=== PATIENT | male | born 1935 | race Caucasian/White ===

== ENCOUNTER 2017-04-20 21:09 | Emergency (ER) | payer MEDICARE ==
[~2017-04-20] VITALS: Ht 182.9 cm; Wt 86.2 kg
[~2017-04-20 21:09] MED LIST: ACCUPRIL PO; ALBIPROI; ASPI81CH PO; CALGLU500 PO; CETI5 PO; Calcium 250+D1 EACH PO; DUTA.5 PO; FLUSAL2505 INH; GUAI600T33; HYDCHL25 PO; INHALER INH; LAVAP17G PO; LEVOFLOXACIN750 MG; Lasix20 MG PO; METO50 PO; NORT25 PO; OMEP20ER PO; OXAP600 PO; OXYACE5T PO; OXYC15ER PO; OXYC5 PO; POLY17UD PO; PRED10; PRED20; QUIN10 PO; SIMV10 PO; SIMV20 PO; TAMS.4ER PO; TRAM50 PO
[2017-04-20] MEDS ORDERED: PRED10 PO (22:14)
[2017-04-20] MEDS ORDERED: ZYTIGA250 MG PO (22:15)
[2017-04-20 22:51] LABS: BASOPHILS ABSOLUTE AUTO 0.04 K/mm3 (0.00-0.23); BASOPHILS PERCENT AUTO 0 % (0-2); EOSINOPHILS ABSOLUTE AUTO 0.01 K/mm3 (0.00-0.68); EOSINOPHILS PERCENT AUTO 0 % (0-6); Hematocrit 44.8 % (37.0-53.0); Hemoglobin 14.7 g/dL (13.5-17.5); IMMATURE GRAN ABSOLUTE AUTO 0.16 K/mm3 (0.00-0.10); IMMATURE GRAN PERCENT AUTO 1 % (0-1); LYMPHOCYTES PERCENT AUTO 3 % (21-46); MONOCYTES ABSOLUTE AUTO 1.65 K/mm3 (0.16-1.47); MONOCYTES PERCENT AUTO 7 % (4-13); Mean Corpuscular HGB Conc 32.8 g/dL (31.5-36.5); Mean Corpuscular Volume 91 fL (80-100); Mean Platelet Volume 11.2 fL (9.1-12.4); NEUTROPHILS ABSOLUTE AUTO 21.43 K/mm3 (1.96-9.15); NEUTROPHILS PERCENT AUTO 89 % (41-73); Platelet Count 148 K/mm3 (150-400); RDW Coefficient Variation 13.2 % (11.7-14.2); White Blood Cell Count 24.09 K/mm3 (4.00-11.30)
[2017-04-20 23:09] LABS: International Normalized Ratio 1.11; Prothrombin Time Results 11.6 Sec (9.7-11.5)
[2017-04-20 23:12] LABS: Alanine Aminotransfer (ALT/SGP 19 U/L (12-78); Albumin, Blood 3.5 g/dL (3.4-5.0); Alk Phos 92 U/L (50-136); Anion Gap 8 mmol/L (6-16); Aspartate Aminotrans (AST/SGOT 20 U/L (12-37); Bilirubin, Total 0.7 mg/dL (0.1-1.0); Blood Urea Nitrogen 24 mg/dL (8-24); CO2, Blood 28 mmol/L (21-32); Chloride, Blood 101 mmol/L (98-108); Globulin, Blood 3.4 g/dL (2.2-4.0); Glomerular Filtration Rate >60 (60-); Glucose, Blood 134 mg/dL (70-99); Potassium, Blood 3.6 mmol/L (3.5-5.5); Sodium, Blood 137 mmol/L (136-145); Total Protein, Blood 6.9 g/dL (6.4-8.2)
[2017-04-21] MEDS ORDERED: Cleocin HCl150 MG PO (00:42)
[2017-04-21] MEDS ORDERED: GABA100 PO (13:56)
[2017-04-22] MEDS ORDERED: GABA300 PO (15:55)
== END 2017-04-21 01:25 | disposition home or self-care (01) ==
LOC: ER 21:09
PROVIDERS: Emergency Medicine
DX: L03.115 Cellulitis of right lower limb (principal); J44.9 Chronic obstructive pulmonary disease, unspecified; N40.0 Benign prostatic hyperplasia without lower urinary tract symptoms; E78.00 Pure hypercholesterolemia, unspecified; I10 Essential (primary) hypertension; I25.10 Atherosclerotic heart disease of native coronary artery without angina pectoris; Z79.891 Long term (current) use of opiate analgesic; Z79.82 Long term (current) use of aspirin; Z79.2 Long term (current) use of antibiotics
CPT/HCPCS: 36415; 73590; 80053; 83605; 85025; 85610; 85730; 87040; 93971; 96365; 99284; J3370

== ENCOUNTER 2017-04-21 11:17 | Inpatient (IN) | payer MEDICARE ==
[~2017-04-21] VITALS: Ht 175.3 cm; Wt 86.3 kg
[~2017-04-21 11:17] MED LIST changes: +Cleocin HCl150 MG PO; +PRED10 PO; +ZYTIGA250 MG PO
[2017-04-21 12:47] LABS: Hematocrit 42.7 % (37.0-53.0); Mean Corpuscular HGB 30.2 pg (26.0-34.0); Mean Corpuscular HGB Conc 32.8 g/dL (31.5-36.5); Mean Corpuscular Volume 92 fL (80-100); Mean Platelet Volume 10.9 fL (9.1-12.4); Platelet Count 132 K/mm3 (150-400); RDW Coefficient Variation 13.4 % (11.7-14.2); RDW Standard Deviation 45.7 fL (35.1-46.3); Red Blood Cell Count 4.64 M/mm3 (4.30-5.90); White Blood Cell Count 16.47 K/mm3 (4.00-11.30)
[2017-04-21 13:05] LABS: BASOPHILS ABSOLUTE MAN 0.16 K/mm3 (0.00-0.23); BASOPHILS PERCENT MAN 1 % (0-2); EOSINOPHILS PERCENT MAN 0 % (0-6); LYMPHOCYTES ABSOLUTE MAN 0.49 K/mm3 (0.84-5.20); LYMPHOCYTES PERCENT MAN 3 % (21-46); MONOCYTES ABSOLUTE MAN 0.98 K/mm3 (0.16-1.47); MONOCYTES PERCENT MAN 6 % (4-13); NEUTROPHILS ABSOLUTE MAN 14.82 K/mm3 (1.96-9.15); SEG NEUTROPHILS PERCENT MAN 90 % (41-73); TOTAL CELLS COUNTED 100
[2017-04-21] MEDS ORDERED: GABA100 PO (13:56)
[2017-04-22 05:17] LABS: BASOPHILS ABSOLUTE AUTO 0.05 K/mm3 (0.00-0.23); BASOPHILS PERCENT AUTO 0 % (0-2); EOSINOPHILS ABSOLUTE AUTO 0.11 K/mm3 (0.00-0.68); EOSINOPHILS PERCENT AUTO 1 % (0-6); Hematocrit 41.2 % (37.0-53.0); Hemoglobin 13.6 g/dL (13.5-17.5); IMMATURE GRAN ABSOLUTE AUTO 0.05 K/mm3 (0.00-0.10); IMMATURE GRAN PERCENT AUTO 0 % (0-1); LYMPHOCYTES ABSOLUTE AUTO 1.33 K/mm3 (0.84-5.20); LYMPHOCYTES PERCENT AUTO 10 % (21-46); MONOCYTES ABSOLUTE AUTO 1.03 K/mm3 (0.16-1.47); MONOCYTES PERCENT AUTO 7 % (4-13); Mean Corpuscular HGB 30.4 pg (26.0-34.0); Mean Corpuscular Volume 92 fL (80-100); Mean Platelet Volume 11.3 fL (9.1-12.4); NEUTROPHILS ABSOLUTE AUTO 11.31 K/mm3 (1.96-9.15); NEUTROPHILS PERCENT AUTO 81 % (41-73); Platelet Count 126 K/mm3 (150-400); RDW Coefficient Variation 13.4 % (11.7-14.2); RDW Standard Deviation 45.7 fL (35.1-46.3); Red Blood Cell Count 4.48 M/mm3 (4.30-5.90); White Blood Cell Count 13.88 K/mm3 (4.00-11.30)
[2017-04-22 05:43] LABS: Albumin, Blood 2.9 g/dL (3.4-5.0); Albumin/Globulin Ratio 0.8 (0.8-1.8); Bilirubin, Total 1.3 mg/dL (0.1-1.0); Bun/Creatinine Ratio 22.2 (12.0-20.0); Calcium, Blood 8.5 mg/dL (8.5-10.1); Creatinine, Blood 1.26 mg/dL (0.60-1.20); Globulin, Blood 3.5 g/dL (2.2-4.0); Total Protein, Blood 6.4 g/dL (6.4-8.2)
[2017-04-22] MEDS ORDERED: GABA300 PO (15:55)
[2017-04-23 05:07] LABS: BASOPHILS ABSOLUTE AUTO 0.07 K/mm3 (0.00-0.23); BASOPHILS PERCENT AUTO 1 % (0-2); EOSINOPHILS ABSOLUTE AUTO 0.18 K/mm3 (0.00-0.68); EOSINOPHILS PERCENT AUTO 2 % (0-6); Hematocrit 39.6 % (37.0-53.0); Hemoglobin 13.2 g/dL (13.5-17.5); IMMATURE GRAN ABSOLUTE AUTO 0.05 K/mm3 (0.00-0.10); IMMATURE GRAN PERCENT AUTO 1 % (0-1); LYMPHOCYTES ABSOLUTE AUTO 1.03 K/mm3 (0.84-5.20); LYMPHOCYTES PERCENT AUTO 9 % (21-46); MONOCYTES ABSOLUTE AUTO 1.02 K/mm3 (0.16-1.47); MONOCYTES PERCENT AUTO 9 % (4-13); Mean Corpuscular HGB 30.3 pg (26.0-34.0); Mean Corpuscular HGB Conc 33.3 g/dL (31.5-36.5); Mean Corpuscular Volume 91 fL (80-100); Mean Platelet Volume 11.7 fL (9.1-12.4); NEUTROPHILS ABSOLUTE AUTO 8.66 K/mm3 (1.96-9.15); NEUTROPHILS PERCENT AUTO 79 % (41-73); Platelet Count 128 K/mm3 (150-400); RDW Coefficient Variation 13.3 % (11.7-14.2); RDW Standard Deviation 44.9 fL (35.1-46.3); Red Blood Cell Count 4.35 M/mm3 (4.30-5.90); White Blood Cell Count 11.01 K/mm3 (4.00-11.30)
[2017-04-23 05:25] LABS: Albumin, Blood 2.5 g/dL (3.4-5.0); Albumin/Globulin Ratio 0.7 (0.8-1.8); Bilirubin, Total 1.3 mg/dL (0.1-1.0); Bun/Creatinine Ratio 20.1 (12.0-20.0); Calcium, Blood 8.2 mg/dL (8.5-10.1); Creatinine, Blood 1.34 mg/dL (0.60-1.20); Globulin, Blood 3.4 g/dL (2.2-4.0); Potassium, Blood 3.4 mmol/L (3.5-5.5); Total Protein, Blood 5.9 g/dL (6.4-8.2)
[2017-04-25 04:59] LABS: BASOPHILS ABSOLUTE AUTO 0.05 K/mm3 (0.00-0.23); BASOPHILS PERCENT AUTO 1 % (0-2); EOSINOPHILS ABSOLUTE AUTO 0.29 K/mm3 (0.00-0.68); EOSINOPHILS PERCENT AUTO 3 % (0-6); Hemoglobin 13.7 g/dL (13.5-17.5); IMMATURE GRAN ABSOLUTE AUTO 0.04 K/mm3 (0.00-0.10); IMMATURE GRAN PERCENT AUTO 0 % (0-1); LYMPHOCYTES ABSOLUTE AUTO 0.76 K/mm3 (0.84-5.20); LYMPHOCYTES PERCENT AUTO 8 % (21-46); MONOCYTES ABSOLUTE AUTO 0.92 K/mm3 (0.16-1.47); MONOCYTES PERCENT AUTO 10 % (4-13); Mean Corpuscular HGB 30.6 pg (26.0-34.0); Mean Corpuscular HGB Conc 33.4 g/dL (31.5-36.5); Mean Corpuscular Volume 92 fL (80-100); NEUTROPHILS ABSOLUTE AUTO 7.65 K/mm3 (1.96-9.15); NEUTROPHILS PERCENT AUTO 79 % (41-73); Platelet Count 130 K/mm3 (150-400); RDW Coefficient Variation 13.1 % (11.7-14.2); RDW Standard Deviation 44.1 fL (35.1-46.3); Red Blood Cell Count 4.47 M/mm3 (4.30-5.90); White Blood Cell Count 9.71 K/mm3 (4.00-11.30)
[2017-04-25 05:15] LABS: Anion Gap 7 mmol/L (6-16); Blood Urea Nitrogen 16 mg/dL (8-24); Bun/Creatinine Ratio 19.9 (12.0-20.0); CO2, Blood 27 mmol/L (21-32); Calcium, Blood 8.8 mg/dL (8.5-10.1); Chloride, Blood 102 mmol/L (98-108); Glomerular Filtration Rate >60 (60-); Glucose, Blood 100 mg/dL (70-99); Potassium, Blood 4.2 mmol/L (3.5-5.5); Sodium, Blood 136 mmol/L (136-145)
[2017-04-25] MEDS ORDERED: CEPH500 (12:29)
== END 2017-04-25 13:52 | disposition home or self-care (01) | DRG 872 ==
LOC: ER 11:17 → MEDS 12:46 → ENPENDDIS 04-25 11:36 → MEDS 04-25 13:52
PROVIDERS: Internal Medicine
DX: A41.9 Sepsis, unspecified organism (principal); N17.9 Acute kidney failure, unspecified; I95.9 Hypotension, unspecified; I13.0 Hypertensive heart and chronic kidney disease with heart failure and stage 1 through stage 4 chronic kidney disease, or unspecified chronic kidney disease; J44.1 Chronic obstructive pulmonary disease with (acute) exacerbation; I50.22 Chronic systolic (congestive) heart failure; L03.115 Cellulitis of right lower limb; I25.5 Ischemic cardiomyopathy; N18.9 Chronic kidney disease, unspecified; I12.9 Hypertensive chronic kidney disease with stage 1 through stage 4 chronic kidney disease, or unspecified chronic kidney disease; E78.5 Hyperlipidemia, unspecified; E87.6 Hypokalemia; C61 Malignant neoplasm of prostate; I25.10 Atherosclerotic heart disease of native coronary artery without angina pectoris; D33.2 Benign neoplasm of brain, unspecified; Z92.21 Personal history of antineoplastic chemotherapy; Z95.5 Presence of coronary angioplasty implant and graft; Z88.5 Allergy status to narcotic agent
CPT/HCPCS: 36415; 70450; 80048; 80053; 82947; 83880; 85007; 85025; 85027; 94640; 94760; 96374; 97161; 99285; G8978; G8979; J0690; J1650; J2405; J3010; J7030

== ENCOUNTER → 2017-07-18 | Outpatient (CLI) | payer MEDICARE ==
[~2017-07-18] MED LIST changes: +CEPH500; +GABA100 PO; +GABA300 PO
[2017-07-18 17:04] LABS: BASOPHILS ABSOLUTE AUTO 0.06 K/mm3 (0.00-0.23); BASOPHILS PERCENT AUTO 1 % (0-2); EOSINOPHILS ABSOLUTE AUTO 0.13 K/mm3 (0.00-0.68); EOSINOPHILS PERCENT AUTO 2 % (0-6); Hemoglobin 14.1 g/dL (13.5-17.5); IMMATURE GRAN ABSOLUTE AUTO 0.03 K/mm3 (0.00-0.10); IMMATURE GRAN PERCENT AUTO 0 % (0-1); LYMPHOCYTES ABSOLUTE AUTO 1.02 K/mm3 (0.84-5.20); LYMPHOCYTES PERCENT AUTO 12 % (21-46); MONOCYTES ABSOLUTE AUTO 0.79 K/mm3 (0.16-1.47); MONOCYTES PERCENT AUTO 9 % (4-13); Mean Corpuscular HGB 30.7 pg (26.0-34.0); Mean Corpuscular HGB Conc 33.6 g/dL (31.5-36.5); Mean Corpuscular Volume 91 fL (80-100); Mean Platelet Volume 10.5 fL (9.1-12.4); NEUTROPHILS PERCENT AUTO 76 % (41-73); Platelet Count 176 K/mm3 (150-400); RDW Coefficient Variation 12.8 % (11.7-14.2); RDW Standard Deviation 42.9 fL (35.1-46.3); White Blood Cell Count 8.43 K/mm3 (4.00-11.30)
== END ==
LOC: LAB SHORT 16:59 → LAB EV 16:59
PROVIDERS: Physician Assistant Surgical
DX: R22.41 Localized swelling, mass and lump, right lower limb (principal)
CPT/HCPCS: 85025

== ENCOUNTER 2018-02-27 19:27 | Inpatient (IN) | payer MEDICARE ==
[~2018-02-27] VITALS: Ht 180.3 cm; Wt 83.4 kg
[~2018-02-27 19:27] MED LIST changes: -ABAT250V; -ELIQUIS5 MG PO; -Furosemide20 MG PO; -GAVILAX17 GM PO; -OXYC10ER PO; -Oxycodone HCl20 M1 PO; -POTCHL20ER PO; -PRED5 PO
[2018-02-27] MEDS ORDERED: Oxycodone HCl20 M1 PO (20:48)
[2018-02-27] MEDS ORDERED: HYDCHL25 PO (20:48)
[2018-02-27] MEDS ORDERED: ABAT250V (20:48)
[2018-02-27] MEDS ORDERED: POTCHL20ER PO (20:48)
[2018-02-27 21:01] LABS: International Normalized Ratio 1.26; Prothrombin Time Results 12.8 Sec (9.7-11.5)
[2018-02-27 21:17] LABS: BASOPHILS ABSOLUTE AUTO 0.03 K/mm3 (0.00-0.23); BASOPHILS PERCENT AUTO 1 % (0-2); EOSINOPHILS ABSOLUTE AUTO 0.12 K/mm3 (0.00-0.68); EOSINOPHILS PERCENT AUTO 2 % (0-6); Hematocrit 35.1 % (37.0-53.0); Hemoglobin 11.7 g/dL (13.5-17.5); IMMATURE GRAN ABSOLUTE AUTO 0.03 K/mm3 (0.00-0.10); IMMATURE GRAN PERCENT AUTO 1 % (0-1); LYMPHOCYTES ABSOLUTE AUTO 0.67 K/mm3 (0.84-5.20); LYMPHOCYTES PERCENT AUTO 11 % (21-46); MONOCYTES ABSOLUTE AUTO 0.58 K/mm3 (0.16-1.47); MONOCYTES PERCENT AUTO 9 % (4-13); Mean Corpuscular HGB 31.1 pg (26.0-34.0); Mean Corpuscular HGB Conc 33.3 g/dL (31.5-36.5); Mean Corpuscular Volume 93 fL (80-100); Mean Platelet Volume 11.5 fL (9.1-12.4); NEUTROPHILS ABSOLUTE AUTO 4.85 K/mm3 (1.96-9.15); NEUTROPHILS PERCENT AUTO 77 % (41-73); Platelet Count 82 K/mm3 (150-400); RDW Coefficient Variation 13.1 % (11.7-14.2); RDW Standard Deviation 44.8 fL (35.1-46.3); Red Blood Cell Count 3.76 M/mm3 (4.30-5.90); White Blood Cell Count 6.28 K/mm3 (4.00-11.30)
[2018-02-27 21:32] LABS: Albumin, Blood 3.1 g/dL (3.4-5.0); Bilirubin, Total 0.8 mg/dL (0.1-1.0); Calcium, Blood 8.1 mg/dL (8.5-10.1); Creatinine, Blood 1.61 mg/dL (0.60-1.20); Globulin, Blood 3.2 g/dL (2.2-4.0); Potassium, Blood 3.4 mmol/L (3.5-5.5); Total Protein, Blood 6.3 g/dL (6.4-8.2)
[2018-02-27 21:54] LABS: Uric Acid, Blood 6.1 mg/dL (3.5-7.2)
[2018-02-27 23:58] LABS: Source, Urine Clean Catch
[2018-02-28 00:04] LABS: Bilirubin, Urine Neg (Neg); Blood, Urine 2+ (Neg); Glucose Qualitative, Urine Neg (Neg); Ketones, Urine Neg (Neg); Leukocyte Esterase, Urine Neg (Neg); Nitrite, Urine Neg (Neg); Protein, Urine 2+ (Neg); Urobilinogen, Urine NORM (Normal)
[2018-02-28 00:07] LABS: Appearance, Urine Clear (Clear); Color, Urine Yellow (P-Yellow)
[2018-02-28 00:18] LABS: Bacteria Rare /hpf; Squamous Epithelial Cells Few /hpf (Few); White Blood Cells, Urine 0-2 /hpf (0-5)
[2018-02-28 05:37] LABS: International Normalized Ratio 1.23; Prothrombin Time Results 12.5 Sec (9.7-11.5)
[2018-02-28 05:51] LABS: Albumin, Blood 3.2 g/dL (3.4-5.0); Albumin/Globulin Ratio 1.1 (0.8-1.8); Bilirubin, Total 1.3 mg/dL (0.1-1.0); Bun/Creatinine Ratio 11.8 (12.0-20.0); Calcium, Blood 8.5 mg/dL (8.5-10.1); Creatinine, Blood 1.86 mg/dL (0.60-1.20); Potassium, Blood 3.4 mmol/L (3.5-5.5); Total Protein, Blood 6.2 g/dL (6.4-8.2)
[2018-02-28] MEDS ORDERED: PRED5 PO (13:14)
[2018-02-28] MEDS ORDERED: Furosemide20 MG PO (13:15)
[2018-03-01 05:31] LABS: BASOPHILS ABSOLUTE AUTO 0.04 K/mm3 (0.00-0.23); BASOPHILS PERCENT AUTO 1 % (0-2); EOSINOPHILS ABSOLUTE AUTO 0.21 K/mm3 (0.00-0.68); EOSINOPHILS PERCENT AUTO 4 % (0-6); Hematocrit 34.2 % (37.0-53.0); Hemoglobin 11.3 g/dL (13.5-17.5); IMMATURE GRAN ABSOLUTE AUTO 0.02 K/mm3 (0.00-0.10); IMMATURE GRAN PERCENT AUTO 0 % (0-1); LYMPHOCYTES ABSOLUTE AUTO 0.65 K/mm3 (0.84-5.20); LYMPHOCYTES PERCENT AUTO 13 % (21-46); MONOCYTES ABSOLUTE AUTO 0.46 K/mm3 (0.16-1.47); MONOCYTES PERCENT AUTO 9 % (4-13); Mean Corpuscular HGB 31.1 pg (26.0-34.0); Mean Corpuscular Volume 94 fL (80-100); Mean Platelet Volume 11.8 fL (9.1-12.4); NEUTROPHILS ABSOLUTE AUTO 3.66 K/mm3 (1.96-9.15); NEUTROPHILS PERCENT AUTO 73 % (41-73); Platelet Count 80 K/mm3 (150-400); RDW Coefficient Variation 13.2 % (11.7-14.2); RDW Standard Deviation 44.8 fL (35.1-46.3); Red Blood Cell Count 3.63 M/mm3 (4.30-5.90); White Blood Cell Count 5.04 K/mm3 (4.00-11.30)
[2018-03-01 06:10] LABS: Albumin, Blood 2.8 g/dL (3.4-5.0); Anion Gap 11 mmol/L (6-16); Blood Urea Nitrogen 33 mg/dL (8-24); Bun/Creatinine Ratio 14.9 (12.0-20.0); CO2, Blood 27 mmol/L (21-32); Calcium, Blood 8.3 mg/dL (8.5-10.1); Chloride, Blood 106 mmol/L (98-108); Creatinine, Blood 2.22 mg/dL (0.60-1.20); Glomerular Filtration Rate 30 (60-); Glucose, Blood 88 mg/dL (70-99); Phosphorus, Blood 3.9 mg/dL (2.5-4.9); Potassium, Blood 3.1 mmol/L (3.5-5.5); Sodium, Blood 144 mmol/L (136-145)
[2018-03-02 05:51] LABS: BASOPHILS ABSOLUTE AUTO 0.03 K/mm3 (0.00-0.23); BASOPHILS PERCENT AUTO 1 % (0-2); EOSINOPHILS ABSOLUTE AUTO 0.14 K/mm3 (0.00-0.68); EOSINOPHILS PERCENT AUTO 4 % (0-6); Hematocrit 33.8 % (37.0-53.0); Hemoglobin 11.1 g/dL (13.5-17.5); IMMATURE GRAN ABSOLUTE AUTO 0.01 K/mm3 (0.00-0.10); IMMATURE GRAN PERCENT AUTO 0 % (0-1); LYMPHOCYTES ABSOLUTE AUTO 0.61 K/mm3 (0.84-5.20); LYMPHOCYTES PERCENT AUTO 18 % (21-46); MONOCYTES PERCENT AUTO 12 % (4-13); Mean Corpuscular HGB 31.3 pg (26.0-34.0); Mean Corpuscular HGB Conc 32.8 g/dL (31.5-36.5); Mean Corpuscular Volume 95 fL (80-100); Mean Platelet Volume 11.1 fL (9.1-12.4); NEUTROPHILS PERCENT AUTO 66 % (41-73); Platelet Count 74 K/mm3 (150-400); RDW Coefficient Variation 13.2 % (11.7-14.2); RDW Standard Deviation 46.1 fL (35.1-46.3); Red Blood Cell Count 3.55 M/mm3 (4.30-5.90); White Blood Cell Count 3.49 K/mm3 (4.00-11.30)
[2018-03-02 06:25] LABS: Bun/Creatinine Ratio 18.1 (12.0-20.0); Calcium, Blood 8.2 mg/dL (8.5-10.1); Creatinine, Blood 2.37 mg/dL (0.60-1.20)
[2018-03-02] MEDS ORDERED: ELIQUIS5 MG PO (14:41)
[2018-03-02] MEDS ORDERED: POTCHL20ER PO (14:42)
== END 2018-03-02 15:52 | disposition home or self-care (01) | DRG 176 ==
LOC: ER 19:27 → MEDS 21:22 → ER 21:22 → MEDS 22:12
PROVIDERS: Emergency Medicine; Family Medicine; Nurse Practitioner Acute Care; ADMIT Hospitalist
DX: I26.99 Other pulmonary embolism without acute cor pulmonale (principal); I42.9 Cardiomyopathy, unspecified; I25.10 Atherosclerotic heart disease of native coronary artery without angina pectoris; J44.9 Chronic obstructive pulmonary disease, unspecified; Z85.038 Personal history of other malignant neoplasm of large intestine; E78.5 Hyperlipidemia, unspecified; Z90.79 Acquired absence of other genital organ(s); E87.6 Hypokalemia; N18.3 Chronic kidney disease, stage 3 (moderate); C61 Malignant neoplasm of prostate
CPT/HCPCS: 36415; 71046; 71260; 80048; 80053; 80069; 81001; 82550; 83735; 83880; 84550; 85025; 85379; 85610; 85730; 93005; 93010; 93971; 94761; 94762; 99285; J1650; J1940; Q9967

== ENCOUNTER → 2018-02-27 | Outpatient (CLI) | payer MEDICARE ==
[~2018-02-27] MED LIST changes: +ABAT250V; +ELIQUIS5 MG PO; +Furosemide20 MG PO; +GAVILAX17 GM PO; +OXYC10ER PO; +Oxycodone HCl20 M1 PO; +POTCHL20ER PO; +PRED5 PO
[2018-02-27 14:23] LABS: BASOPHILS ABSOLUTE AUTO 0.04 K/mm3 (0.00-0.23); BASOPHILS PERCENT AUTO 1 % (0-2); EOSINOPHILS ABSOLUTE AUTO 0.12 K/mm3 (0.00-0.68); EOSINOPHILS PERCENT AUTO 2 % (0-6); Hematocrit 38.7 % (37.0-53.0); IMMATURE GRAN ABSOLUTE AUTO 0.04 K/mm3 (0.00-0.10); IMMATURE GRAN PERCENT AUTO 1 % (0-1); LYMPHOCYTES PERCENT AUTO 5 % (21-46); MONOCYTES ABSOLUTE AUTO 0.63 K/mm3 (0.16-1.47); MONOCYTES PERCENT AUTO 8 % (4-13); Mean Corpuscular HGB 30.9 pg (26.0-34.0); Mean Corpuscular HGB Conc 33.6 g/dL (31.5-36.5); Mean Corpuscular Volume 92 fL (80-100); Mean Platelet Volume 11.8 fL (9.1-12.4); NEUTROPHILS ABSOLUTE AUTO 6.73 K/mm3 (1.96-9.15); NEUTROPHILS PERCENT AUTO 85 % (41-73); Platelet Count 102 K/mm3 (150-400); RDW Coefficient Variation 13.1 % (11.7-14.2); RDW Standard Deviation 44.4 fL (35.1-46.3); Red Blood Cell Count 4.21 M/mm3 (4.30-5.90); White Blood Cell Count 7.96 K/mm3 (4.00-11.30)
[2018-02-27 14:37] LABS: Albumin, Blood 3.7 g/dL (3.4-5.0); Albumin/Globulin Ratio 1.1 (0.8-1.8); Bun/Creatinine Ratio 12.2 (12.0-20.0); Calcium, Blood 8.9 mg/dL (8.5-10.1); Creatinine, Blood 1.88 mg/dL (0.60-1.20); Globulin, Blood 3.5 g/dL (2.2-4.0); Total Protein, Blood 7.2 g/dL (6.4-8.2)
[2018-02-27 18:26] LABS: Magnesium, Blood 1.9 mg/dL (1.6-2.4)
== END ==
LOC: LAB EV 14:12 → LAB SHORT 14:12
PROVIDERS: Physician Assistant
DX: I50.9 Heart failure, unspecified (principal); E87.6 Hypokalemia; R06.01 Orthopnea
CPT/HCPCS: 80053; 83735; 83880; 85025; 85379

== ENCOUNTER 2018-03-28 12:58 | Emergency (ER) | payer MEDICARE ==
[~2018-03-28] VITALS: Ht 180.3 cm; Wt 80.7 kg
[~2018-03-28 12:58] MED LIST changes: +ABAT250V; +ELIQUIS5 MG PO; +Furosemide20 MG PO; +Oxycodone HCl20 M1 PO; +POTCHL20ER PO; +PRED5 PO
[2018-03-28 13:56] LABS: BASOPHILS ABSOLUTE AUTO 0.05 K/mm3 (0.00-0.23); BASOPHILS PERCENT AUTO 1 % (0-2); EOSINOPHILS ABSOLUTE AUTO 0.09 K/mm3 (0.00-0.68); EOSINOPHILS PERCENT AUTO 1 % (0-6); Hemoglobin 12.5 g/dL (13.5-17.5); IMMATURE GRAN ABSOLUTE AUTO 0.03 K/mm3 (0.00-0.10); IMMATURE GRAN PERCENT AUTO 0 % (0-1); LYMPHOCYTES ABSOLUTE AUTO 0.57 K/mm3 (0.84-5.20); LYMPHOCYTES PERCENT AUTO 7 % (21-46); MONOCYTES ABSOLUTE AUTO 0.57 K/mm3 (0.16-1.47); MONOCYTES PERCENT AUTO 7 % (4-13); Mean Corpuscular HGB 31.3 pg (26.0-34.0); Mean Corpuscular HGB Conc 32.9 g/dL (31.5-36.5); Mean Corpuscular Volume 95 fL (80-100); Mean Platelet Volume 11.8 fL (9.1-12.4); NEUTROPHILS ABSOLUTE AUTO 6.65 K/mm3 (1.96-9.15); NEUTROPHILS PERCENT AUTO 84 % (41-73); Platelet Count 82 K/mm3 (150-400); RDW Standard Deviation 42.3 fL (35.1-46.3); Red Blood Cell Count 3.99 M/mm3 (4.30-5.90); White Blood Cell Count 7.96 K/mm3 (4.00-11.30)
[2018-03-28 13:59] LABS: Source, Urine Clean Catch
[2018-03-28 14:17] LABS: Albumin, Blood 3.6 g/dL (3.4-5.0); Albumin/Globulin Ratio 1.1 (0.8-1.8); Bun/Creatinine Ratio 18.2 (12.0-20.0); Calcium, Blood 9.3 mg/dL (8.5-10.1); Creatinine, Blood 1.92 mg/dL (0.60-1.20); Globulin, Blood 3.4 g/dL (2.2-4.0); Potassium, Blood 3.1 mmol/L (3.5-5.5)
[2018-03-28] MEDS ORDERED: TRAM50 PO (14:24)
[2018-03-28] MEDS ORDERED: GAVILAX17 GM PO (14:25)
[2018-03-28 14:33] LABS: Appearance, Urine Hazy (Clear); Bilirubin, Urine Neg (Neg); Blood, Urine 5+ (Neg); Color, Urine Yellow (P-Yellow); Glucose Qualitative, Urine Neg (Neg); Ketones, Urine Neg (Neg); Leukocyte Esterase, Urine Neg (Neg); Nitrite, Urine Neg (Neg); Protein, Urine 2+ (Neg); Specific Gravity, Urine 1.005 (1.003-1.022); Urobilinogen, Urine NORM (Normal); pH, Urine 6.5 (5.0-8.0)
[2018-03-28 15:03] LABS: White Blood Cells, Urine 0-2 /hpf (0-5)
[2018-03-28 15:04] LABS: Red Blood Cells, Urine 50-100 /hpf (0-2); Transitional Epithelial Cells Few /hpf ({null, 0-Rare})
[2018-03-28 15:07] LABS: Renal Epithelial Few /hpf ({null, 0-Rare}); Squamous Epithelial Cells Rare /hpf (Few)
[2018-03-28 15:08] LABS: Bacteria Few /hpf
== END 2018-03-28 16:15 | disposition home or self-care (01) ==
LOC: ER 12:58
PROVIDERS: Physician Assistant
DX: N13.30 Unspecified hydronephrosis (principal); M84.350A Stress fracture, pelvis, initial encounter for fracture; I12.9 Hypertensive chronic kidney disease with stage 1 through stage 4 chronic kidney disease, or unspecified chronic kidney disease; C61 Malignant neoplasm of prostate; N32.89 Other specified disorders of bladder; N18.9 Chronic kidney disease, unspecified; E78.5 Hyperlipidemia, unspecified; I42.9 Cardiomyopathy, unspecified; I25.10 Atherosclerotic heart disease of native coronary artery without angina pectoris; J44.9 Chronic obstructive pulmonary disease, unspecified; F17.200 Nicotine dependence, unspecified, uncomplicated; Z85.841 Personal history of malignant neoplasm of brain; Z85.46 Personal history of malignant neoplasm of prostate; Z79.899 Other long term (current) drug therapy; Z88.1 Allergy status to other antibiotic agents
CPT/HCPCS: 36415; 51702; 74176; 80053; 81001; 83690; 84484; 85025; 93005; 93010; 96361; 96374; 99284-25; J2405; J7030

== ENCOUNTER 2018-03-29 01:44 | Emergency (ER) | payer MEDICARE ==
[~2018-03-29] VITALS: Ht 180.3 cm; Wt 81.7 kg
[~2018-03-29 01:44] MED LIST changes: +GAVILAX17 GM PO
[2018-03-29 03:49] LABS: BASOPHILS ABSOLUTE AUTO 0.04 K/mm3 (0.00-0.23); BASOPHILS PERCENT AUTO 1 % (0-2); EOSINOPHILS ABSOLUTE AUTO 0.04 K/mm3 (0.00-0.68); EOSINOPHILS PERCENT AUTO 1 % (0-6); Hematocrit 38.4 % (37.0-53.0); Hemoglobin 12.4 g/dL (13.5-17.5); IMMATURE GRAN ABSOLUTE AUTO 0.03 K/mm3 (0.00-0.10); IMMATURE GRAN PERCENT AUTO 0 % (0-1); LYMPHOCYTES ABSOLUTE AUTO 0.61 K/mm3 (0.84-5.20); LYMPHOCYTES PERCENT AUTO 7 % (21-46); MONOCYTES PERCENT AUTO 6 % (4-13); Mean Corpuscular HGB 31.3 pg (26.0-34.0); Mean Corpuscular HGB Conc 32.3 g/dL (31.5-36.5); Mean Corpuscular Volume 97 fL (80-100); Mean Platelet Volume 11.8 fL (9.1-12.4); NEUTROPHILS ABSOLUTE AUTO 7.18 K/mm3 (1.96-9.15); NEUTROPHILS PERCENT AUTO 85 % (41-73); Platelet Count 93 K/mm3 (150-400); RDW Coefficient Variation 12.2 % (11.7-14.2); RDW Standard Deviation 43.6 fL (35.1-46.3); Red Blood Cell Count 3.96 M/mm3 (4.30-5.90)
[2018-03-29 04:03] LABS: Albumin, Blood 3.4 g/dL (3.4-5.0); Albumin/Globulin Ratio 1.1 (0.8-1.8); Bilirubin, Total 0.6 mg/dL (0.1-1.0); Bun/Creatinine Ratio 17.1 (12.0-20.0); Calcium, Blood 8.5 mg/dL (8.5-10.1); Creatinine, Blood 1.99 mg/dL (0.60-1.20); Globulin, Blood 3.2 g/dL (2.2-4.0); Potassium, Blood 3.6 mmol/L (3.5-5.5); Total Protein, Blood 6.6 g/dL (6.4-8.2)
== END 2018-03-29 05:38 | disposition home or self-care (01) ==
LOC: ER 01:44
PROVIDERS: Emergency Medicine
DX: R31.9 Hematuria, unspecified (principal); R42 Dizziness and giddiness; R11.0 Nausea; I25.10 Atherosclerotic heart disease of native coronary artery without angina pectoris; J44.9 Chronic obstructive pulmonary disease, unspecified; E78.00 Pure hypercholesterolemia, unspecified; Z85.46 Personal history of malignant neoplasm of prostate; Z88.1 Allergy status to other antibiotic agents; Z88.5 Allergy status to narcotic agent; Z79.899 Other long term (current) drug therapy
CPT/HCPCS: 36415; 51798; 80053; 85025; 86850; 86900; 86901; 93005; 93010; 96361; 96374; 99283-25; J2405; J7030

== ENCOUNTER 2018-04-20 11:32 | Inpatient (IN) | payer MEDICARE ==
[~2018-04-20] VITALS: Ht 180.3 cm; Wt 83.4 kg
[2018-04-20 12:36] LABS: Hematocrit 38.8 % (37.0-53.0); LYMPHOCYTES PERCENT AUTO 4 % (21-46); MONOCYTES ABSOLUTE AUTO 0.18 K/mm3 (0.16-1.47); MONOCYTES PERCENT AUTO 3 % (4-13); Mean Corpuscular HGB 31.6 pg (26.0-34.0); Mean Corpuscular HGB Conc 33.5 g/dL (31.5-36.5); Mean Corpuscular Volume 94 fL (80-100); Mean Platelet Volume 12.1 fL (9.1-12.4); Platelet Count 103 K/mm3 (150-400); RDW Coefficient Variation 12.6 % (11.7-14.2); RDW Standard Deviation 43.8 fL (35.1-46.3); Red Blood Cell Count 4.11 M/mm3 (4.30-5.90); White Blood Cell Count 5.23 K/mm3 (4.00-11.30)
[2018-04-20 12:41] LABS: BASOPHILS ABSOLUTE AUTO 0.04 K/mm3 (0.00-0.23); BASOPHILS PERCENT AUTO 1 % (0-2); EOSINOPHILS ABSOLUTE AUTO 0.02 K/mm3 (0.00-0.68); EOSINOPHILS PERCENT AUTO 0 % (0-6); IMMATURE GRAN ABSOLUTE AUTO 0.15 K/mm3 (0.00-0.10); IMMATURE GRAN PERCENT AUTO 3 % (0-1); NEUTROPHILS ABSOLUTE AUTO 4.64 K/mm3 (1.96-9.15); NEUTROPHILS PERCENT AUTO 89 % (41-73)
[2018-04-20 12:58] LABS: Albumin, Blood 3.3 g/dL (3.4-5.0); Bilirubin, Total 1.1 mg/dL (0.1-1.0); Bun/Creatinine Ratio 18.7 (12.0-20.0); Calcium, Blood 8.9 mg/dL (8.5-10.1); Creatinine, Blood 3.21 mg/dL (0.60-1.20); Globulin, Blood 3.3 g/dL (2.2-4.0); Potassium, Blood 4.4 mmol/L (3.5-5.5); Total Protein, Blood 6.6 g/dL (6.4-8.2)
[2018-04-20 15:01] LABS: Source, Urine Catheter
[2018-04-20 15:08] LABS: Appearance, Urine Turbid (Clear); Bilirubin, Urine Neg (Neg); Blood, Urine 5+ (Neg); Color, Urine Yellow (P-Yellow); Glucose Qualitative, Urine Neg (Neg); Ketones, Urine Neg (Neg); Leukocyte Esterase, Urine 3+ (Neg); Nitrite, Urine Neg (Neg); Protein, Urine 4+ (Neg); Specific Gravity, Urine 1.015 (1.003-1.022); Urobilinogen, Urine NORM (Normal)
[2018-04-20 16:11] LABS: Red Blood Cells, Urine 25-50 /hpf (0-2); White Blood Cells, Urine 25-50 /hpf (0-5)
[2018-04-20 16:12] LABS: Bacteria Many /hpf; Squamous Epithelial Cells Rare /hpf (Few)
--- NOTE | 2018-04-20 17:45 | NUR ---
MALE PATIENT ADMITTED TO ICU 6 FROM [facility]. MOVED TO BED WITH DARK SHINE SLIDER SHEET. HOME BECKER REMAINS IN. DCED AND NEW BECKER PLACED. BP LOW. PICC LINE BEING PLACED BY A RN. ALBUMIN 25% BEING INFUSED.
--- NOTE | 2018-04-20 18:22 | NUR ---
BECKER CATH IS PATIENTS ORIGINAL FROM HOME. CATH CHANGED AND A #16f BECKER INSERTED AND NEW URINE SPECIMIN SENT TO LAB. DR ENCARNACION CALLED AND WILL BE IN TO SEE PATIENT. CONSULT REQUEST CALLED TO DR RADHA VILLEDA FOR 04/[address] VALENCIA ALSO CONTACTED AND CONSULTED.
[2018-04-20] MEDS ORDERED: OXYC10ER PO (18:26)
[2018-04-20] MEDS ORDERED: ASPI81CH PO (18:30)
[2018-04-20] MEDS ORDERED: ELIQUIS5 MG PO (18:33)
--- NOTE | 2018-04-20 19:34 | NUR ---
PT ADMITTED TO ICU 6 FROM ER FOR SEPSIS; POSSIBLY UROSEPSIS. URINE IS CLOUDY, DARK W SEDIMENT. HOME CATHETER DC'D. 16F TEMP BECKER PLACED W/O DIFFICULTY; PT TOLERATED VERY WELL. DR VALENCIA CONSULTED AND AT BEDSIDE AROUND 1800. NS BOLUS STARTED ON PT. PICC LINE CONSENT OBTAINED. PICC PLACED TO EMMANUEL W/O DIFF. PT C/O SOME NAUSEA; ZOFRAN GIVEN. PT DENIED C/O PAIN. PT ORIENTED TO SELF BUT VERY LETHARGIC. REDNESS NOTED TO BUTTOCKS AND RIGHT HIP; DUCT TAPE THAT WAS USED TO SECURE ATTENDS WAS ADHERED TO RIGHT HIP; DUCT TAPE REMOVED; RED SPOT NOTED AT THIS AREA.
--- NOTE | 2018-04-20 22:07 | NUR ---
PATIENT AWAKENS TO VERBAL STIMULI, ANSWERING QUESTIONS APPROPRIATELY, FALLING BACK TO SLEEP WHEN UNDISTURBED. OXYGEN SAT 88-89% WHILE SLEEPING OXYGEN 2L/NC PLACED. HYPOTENSION CONTINUED AFTER NS BOLUS COMPLETE. LEVOPHED IV STARTED AND HAS BEEN TITRATED TO 18MCG AT THIS TIME. RENAL ULTRASOUND COMPLETE, BECKER DRAINING YELLOW URINE WITH WHITE SEDIMENT. PATIENT FAMILY HOME AFTER ADMIT HISTORY COMPLETE.
[2018-04-21 00:14] LABS: PCO2 Arterial 41.5 mmHg (35-45); PO2 Arterial 82.9 mmHg (80-100); pH Blood Arterial 7.32 (7.35-7.45)
--- NOTE | 2018-04-21 00:27 | NUR ---
DOCTOR ENCARNACION IN TO SEE PATIENT, GIVEN UPDATE AND ORDERS OBTAINED FOR BMP AND ABG AND TO CALL RESULTS.
[2018-04-21 00:54] LABS: Bun/Creatinine Ratio 21.8 (12.0-20.0); Calcium, Blood 7.5 mg/dL (8.5-10.1); Creatinine, Blood 2.29 mg/dL (0.60-1.20); Potassium, Blood 3.5 mmol/L (3.5-5.5)
[2018-04-21 04:54] LABS: Hematocrit 27.9 % (37.0-53.0); Hemoglobin 9.4 g/dL (13.5-17.5); LYMPHOCYTES ABSOLUTE AUTO 0.13 K/mm3 (0.84-5.20); LYMPHOCYTES PERCENT AUTO 4 % (21-46); MONOCYTES ABSOLUTE AUTO 0.16 K/mm3 (0.16-1.47); MONOCYTES PERCENT AUTO 5 % (4-13); Mean Corpuscular HGB 31.6 pg (26.0-34.0); Mean Corpuscular HGB Conc 33.7 g/dL (31.5-36.5); Mean Corpuscular Volume 94 fL (80-100); Mean Platelet Volume 11.8 fL (9.1-12.4); Platelet Count 51 K/mm3 (150-400); RDW Coefficient Variation 12.8 % (11.7-14.2); Red Blood Cell Count 2.97 M/mm3 (4.30-5.90); White Blood Cell Count 2.98 K/mm3 (4.00-11.30)
[2018-04-21 04:55] LABS: BASOPHILS ABSOLUTE AUTO 0.01 K/mm3 (0.00-0.23); BASOPHILS PERCENT AUTO 0 % (0-2); EOSINOPHILS PERCENT AUTO 0 % (0-6); IMMATURE GRAN ABSOLUTE AUTO 0.04 K/mm3 (0.00-0.10); IMMATURE GRAN PERCENT AUTO 1 % (0-1); NEUTROPHILS ABSOLUTE AUTO 2.64 K/mm3 (1.96-9.15); NEUTROPHILS PERCENT AUTO 89 % (41-73)
[2018-04-21 05:23] LABS: Alanine Aminotransfer (ALT/SGP 13 U/L (12-78); Anion Gap 9 mmol/L (6-16); Aspartate Aminotrans (AST/SGOT 13 U/L (12-37); Blood Urea Nitrogen 43 mg/dL (8-24); Bun/Creatinine Ratio 21.3 (12.0-20.0); CO2, Blood 25 mmol/L (21-32); Calcium, Blood 7.3 mg/dL (8.5-10.1); Chloride, Blood 107 mmol/L (98-108); Creatinine, Blood 2.02 mg/dL (0.60-1.20); Glomerular Filtration Rate 34 (60-); Glucose, Blood 173 mg/dL (70-99); Magnesium, Blood 1.6 mg/dL (1.6-2.4); Phosphorus, Blood 2.3 mg/dL (2.5-4.9); Sodium, Blood 141 mmol/L (136-145); Uric Acid, Blood 7.4 mg/dL (3.5-7.2)
[2018-04-21 05:25] LABS: Albumin/Globulin Ratio 1.2 (0.8-1.8); Alk Phos 53 U/L (50-136); Bilirubin, Total 0.6 mg/dL (0.1-1.0); CPK Creatine Kinase 44 U/L (39-308); Globulin, Blood 2.4 g/dL (2.2-4.0); Total Protein, Blood 5.4 g/dL (6.4-8.2); Vancomycin, Random 15.7 ug/mL
--- NOTE | 2018-04-21 07:21 | NUR ---
SUMMARY PATIENT SLEEPING T/O NIGHT AWAKENS TO SLIGHT STIMULI. ASSISTING WITH REPOSITIONING IN BED. PATIENT C/O PAIN TO RIGHT HIP, MEDICATED TWICE FOR PAIN WITH FENTANYL. LEVOPHED TITRATED T/O NIGHT SEE FLOW SHEET, NOW AT 3MCG. DOCTOR ENCARNACION IN TO SEE PATIENT SEE NEW ORDERS. BECKER CATH CONTINUES TO DRAIN LARGE AMTS OF URINE SEE I&O.
--- NOTE | 2018-04-21 11:28 | NUR ---
PT RESTING WELL AND EASILY AROUSED. FAMILY IS IN ROOM TO VISIT. PT DENIES PAIN AT THIS TIME. URINE YELLOW.
[2018-04-21 11:55] LABS: Source, Urine Catheter
[2018-04-21 12:07] LABS: Bilirubin, Urine Neg (Neg); Blood, Urine 5+ (Neg); Glucose Qualitative, Urine Neg (Neg); Ketones, Urine Neg (Neg); Leukocyte Esterase, Urine 3+ (Neg); Nitrite, Urine Neg (Neg); Protein, Urine 3+ (Neg); Urobilinogen, Urine NORM (Normal)
[2018-04-21 12:29] LABS: Appearance, Urine Hazy (Clear); Color, Urine Yellow (P-Yellow)
[2018-04-21 12:30] LABS: White Blood Cells, Urine TNTC /hpf (0-5)
[2018-04-21 12:31] LABS: Bacteria Many /hpf; Red Blood Cells, Urine 25-50 /hpf (0-2); Squamous Epithelial Cells Rare /hpf (Few)
[2018-04-21 12:41] LABS: Magnesium, Blood 1.4 mg/dL (1.6-2.4); Phosphorus, Blood 1.2 mg/dL (2.5-4.9); Potassium, Blood 3.5 mmol/L (3.5-5.5)
--- NOTE | 2018-04-21 12:52 | NUR ---
LARGE FAMILY IN FOR VISIT, ENCOURAGED SHORT QUIET VISITS, FAMILY RECEPTIVE. PT CONT TO DENIE PAIN OR DISTRESS AT THIS TIME. NAUSEA SLOWLY SUPSIDING AFTER ZOFRAN.
--- NOTE | 2018-04-21 13:22 | NUR ---
ECHOCARDIOGRAM COMPLETED
--- NOTE | 2018-04-21 14:57 | NUR ---
PT C/O VERY MILD NAUSEA AFTER PO MEDS. PT CURRENTLY SLEEPING W/O DISTRESS. VSS ON CURRENTLY 2 MCG LEVPPHED GTT.
--- NOTE | 2018-04-21 18:25 | NUR ---
PT HAS RESTED OFF AND ON ALL DAY AND HAS DECLINED TO EAT JUST PO LIQIUD CAUSES NAUSEA AT TIMES. PT IS CURRENTLY VERY AWAKE AND ALERT TALKING WITH FAMILY. BP NOTED ON 2 MCG OF LEVOPHED. PT PAIN THAT IS USUALLY OUT OF CONTROL HAS ONLY NEEDED PO PAIN MED TIMES 1 THIS SHIFT, SEE EMAR. I/O NOTED. PT HAS BEEN "VERY ALERT" NOTES FAMILY WHO HAVE BEEN ATTENTIVE THIS DAY.
--- NOTE | 2018-04-21 22:38 | NUR ---
PATIENT RESTING QUIETLY WHEN UNDISTURBED. C/O PAIN TO HIS NECK AND LOW BACK AND RIGHT HIP. MEDICATED WITH FENTANYL AND OXYCONTIN NEEDED. PATIENT ASSISTING WITH REPOSITIONING IN BED. FENTANYL IV TITRATING FOR HYPOTENSION. PATIENT DERIAN PO MEDICATIONS AND SMALL AMT OF CRACKERS WITHOUT DIFFICULTY.
[2018-04-22 03:52] LABS: Hemoglobin 8.9 g/dL (13.5-17.5)
[2018-04-22 04:05] LABS: Albumin, Blood 2.6 g/dL (3.4-5.0); Anion Gap 8 mmol/L (6-16); Blood Urea Nitrogen 24 mg/dL (8-24); Bun/Creatinine Ratio 20.7 (12.0-20.0); CO2, Blood 28 mmol/L (21-32); Calcium, Blood 7.7 mg/dL (8.5-10.1); Chloride, Blood 109 mmol/L (98-108); Creatinine, Blood 1.16 mg/dL (0.60-1.20); Glomerular Filtration Rate >60 (60-); Glucose, Blood 154 mg/dL (70-99); Magnesium, Blood 1.6 mg/dL (1.6-2.4); Phosphorus, Blood 1.7 mg/dL (2.5-4.9); Potassium, Blood 3.3 mmol/L (3.5-5.5); Sodium, Blood 145 mmol/L (136-145)
--- NOTE | 2018-04-22 06:33 | NUR ---
SUMMARY PATIENT RESTING QUIETLY T/O NIGHT. LEVOPHED DRIP NOW OFF. PATIENT C/O MAGALLANES, NECK PAIN, LOW BACK PAIN AND RIGHT HIP PAIN T/O NIGHT, MEDICATED WITH FENTANYL AND OXYCODONE NEEDED. DOCTOR ALYSHA GIVEN UPDATE THIS MORNING SEE NEW ORDERS. PATIENT VERBALIZING THAT HE DOESN'T WANT TO HAVE ANY MORE CHEMO BECAUSE OF HOW MADE IT MADE HIM FEEL. PATIENT ENCOURAGED TO HAVE A DISCUSSION WITH HIS FAMILY.
[2018-04-22 08:46] LABS: Vancomycin, Trough 11.9 ug/mL (5.0-10.0)
--- NOTE | 2018-04-22 09:10 | NUR ---
DR. SANTOYO AT BEDSIDE FOR EVALUATION. INFORMED OF AFIB, SHORT RUNS OF VTACH, ELEVATED SBP 170'S, LOW POTASSIUM THAT WAS REPLACED THIS MORNING, LOW KPHOS THAT IS CURRENTLY BEING REPLACED, POOR APPETITE, ADEQUATE URINE OUTPUT, OFF OF LEVOPHED, LUNGS SOUNDS WITH CRACKLES. NEW ORDERS PROVIDED.
[2018-04-22 11:17] LABS: Magnesium, Blood 1.5 mg/dL (1.6-2.4); Phosphorus, Blood 1.9 mg/dL (2.5-4.9)
--- NOTE | 2018-04-22 11:50 | NUR ---
Initial Visit: Palliative Care Consult for goals of care. Pt A&O and reports 7/10 pain and 3/7 anxiety. Pt's Evonne and daughter present during visit. Pt also reports moderate nausea. Engaged in therapeutic conversation about goals of care. Pt lives at home with his and their children are supportive of needs at this time. Evonne reports the Pt is considering not perusing further chemo therapy treatment but is hoping he waits to make a decision until after his next appointment with Dr Simms. Evonne and daughter report that if he does decide to stop treatment their plan will be hospice and family will support his decision. Evonne reports that she experiences some anxiety at times due to his condition and the possiblity of him stopping treatment. Offered emotional support and allowed family to express concerns. Spoke with Pt's nurse Shiela and she is agreeable for this RN to request pain medication to be increased. Pt takes 40mg of oxycodone Q4 PRN at home. Shiela reports that she will offer zofran for nausea. Called and spoke with Dr Flannery and requested Pt's pain medication to be increased to dosage that he takes at home. Dr Flannery reports that he will place order for Pt to receive 30mg Q4 PRN and will monitor for next 24 hours. Will reamin available for symptom management and therapeutic visits.
--- NOTE | 2018-04-22 13:05 | NUR ---
CALLED DR. ENCARNACION WITH LAB RESULTS, NEW ORDERS FOR MAGNESIUM SULFATE 1G IV, KPHOS 20MMOL IV, AND CALCIUM GLUCOANTE 1G IV. NEW ORDERS ENTERED, AWAITING DOSES.
--- NOTE | 2018-04-22 17:27 | NUR ---
Pt smiles easily and is surrounded by family. It is clear this man is deeply loved. Family expresses belief that pt will continue to improve. Pt states "its too slow." Non-jain family. Declined prayer but responded well to affirmation of love and encouragement. I will remain available.
--- NOTE | 2018-04-22 18:16 | NUR ---
NURSING SUMMARY ALERT AND ORIENTED X4. C/O PAIN TO RIGHT HIP, LOWER BACK, AND HEAD. MEDICATING WITH ROXYCODONE PRN, ASKING THAT WE MEDICATE HIM EVERY 4 HOURS AND WAKE HIM UP, IF SLEEPING, WHEN HIS DOSES ARE DUE. MEDICATED TWICE WITH FENTANYL 100 MCG IVP WITH MILD RELIEF. PT NORMALLY TAKES 40 MG OF ROXYCODONE, DR. SANTOYO STATED HE WOULD CONSIDER INCREASING TOMORROW. LUNGS WITH CRACKLES THIS AM, STARTED LASIX, CLEAR THIS AFTERNOON. DENIES SOB AND DIFF BREATHING, 2L O2 NC, SATS MID TO HIGH 90%'S. SR - ST ON THE MONITOR WITH A BBB, PAC'S AND PVC'S, HR 80-107. HYPERTENSIVE, STARTED ON ROUTINE ANTI-HYPERTENSIVES. BOWEL SOUNDS X 4 QUADRANTS, POOR APPETITE, C/O NAUSEA X 1, MEDICATED WITH ZOFRAN. K 3.3 THIS AM, REPLACED WITH K-RIDER 20 MEQ'S IV, K CAME BACK 3.6. PHOSPHORUS 1.7 TODAY, GAVE KPHOS RIDER 20 MMOL IV, PHOSPHORUS CAME BACK 1.9, GAVE AN ADDITIONAL KPHOS RIDER 20 MMOL IV. MAGNESIUM 1.5, GAVE MAG SULFATE 1 G IV. IONIZED CALCIUM 1.06, GAVE CALCIUM GLUCONATE 1 G IV. LABS IN AM. CHRONIC BECKER WITH ADEQUATE OUTPUT. CONSULT FOR DR. FUNEZ ORDERED TODAY FOR POSSIBLE PLACEMENT OF BILATERAL NEPHROSTOMY TUBES. AWAITING DR. FUNEZ TO SEE PT BUT HAS TALKED DIRECTLY WITH DR. SANTOYO ABOUT NEED. SKIN WITH MULTIPLE BRUISES, BLISTERS ON LEFT BACK, SCRAPE ON RIGHT HIP. PT HAD CHEMO ON 04/16 AND IS CONSIDERING NOT HAVE CHEMO IN THE FUTURE BUT WILL DISCUSS FURTHER WITH DR. VILLEDA AT HIS APPOINTMENT ON 04/29. EMMANUEL PICC WITH CLINIMIX AT 50 ML/HR, D5 AT 50 ML/HR, AND NS AT TKO X2. FAMILY AT BEDSIDE MOST OF THE DAY. VERY SUPPORTIVE.
--- NOTE | 2018-04-22 18:25 | NUR ---
DR. VILLEDA AT BEDSIDE FOR EVALUATION. STATED THAT PT WILL TRANSITION TO HOSPICE OUTPATIENT, AFTER RECEIVING TREATMENT FOR HIS INFECTION AND GETS THE NEPHROSTOMY TUBES.
--- NOTE | 2018-04-22 22:22 | NUR ---
PATIENT AWAKE VISITING WITH FAMILY, EATING BITES OF DINNER, DRINKING PEPSI. PATIENT FAMILY HOME FOR THE NIGHT. DOCTOR ARMIN IN TO SEE PATIENT PLAN FOR NEPHROSTOMY TUBES PLACEMENT TOMORROW. PLAN TO HOLD ELEQUIS AND PATIENT WILL BE NPO AFTER MIDNIGHT. PATIENT CONTINUES TO HAVE CHRONIC BACK AND RIGHT HIP PAIN, PLAN TO PROVIDE PAIN MEDICATION NEEDED T/O NIGHT. BECKER DRAINING LORA URINE WITH BLOODY SEDIMENT, WILL CONTINUE TO MONITOR.
[2018-04-23 04:16] LABS: BASOPHILS ABSOLUTE AUTO 0.03 K/mm3 (0.00-0.23); BASOPHILS PERCENT AUTO 1 % (0-2); Hematocrit 26.5 % (37.0-53.0); Hemoglobin 8.7 g/dL (13.5-17.5); LYMPHOCYTES ABSOLUTE AUTO 0.16 K/mm3 (0.84-5.20); LYMPHOCYTES PERCENT AUTO 3 % (21-46); MONOCYTES ABSOLUTE AUTO 0.53 K/mm3 (0.16-1.47); MONOCYTES PERCENT AUTO 11 % (4-13); Mean Corpuscular HGB 31.8 pg (26.0-34.0); Mean Corpuscular HGB Conc 32.8 g/dL (31.5-36.5); Mean Platelet Volume 11.8 fL (9.1-12.4); Platelet Count 52 K/mm3 (150-400); RDW Coefficient Variation 12.8 % (11.7-14.2); Red Blood Cell Count 2.74 M/mm3 (4.30-5.90); White Blood Cell Count 4.92 K/mm3 (4.00-11.30)
[2018-04-23 04:21] LABS: EOSINOPHILS PERCENT AUTO 0 % (0-6); IMMATURE GRAN ABSOLUTE AUTO 0.05 K/mm3 (0.00-0.10); IMMATURE GRAN PERCENT AUTO 1 % (0-1); Mean Corpuscular Volume 97 fL (80-100); NEUTROPHILS ABSOLUTE AUTO 4.15 K/mm3 (1.96-9.15); NEUTROPHILS PERCENT AUTO 84 % (41-73)
[2018-04-23 04:38] LABS: Magnesium, Blood 1.7 mg/dL (1.6-2.4)
[2018-04-23 04:42] LABS: Alanine Aminotransfer (ALT/SGP 15 U/L (12-78); Albumin, Blood 2.4 g/dL (3.4-5.0); Albumin/Globulin Ratio 1.1 (0.8-1.8); Alk Phos 97 U/L (50-136); Anion Gap 7 mmol/L (6-16); Aspartate Aminotrans (AST/SGOT 10 U/L (12-37); Bilirubin, Total 0.9 mg/dL (0.1-1.0); Blood Urea Nitrogen 22 mg/dL (8-24); CO2, Blood 29 mmol/L (21-32); Calcium, Blood 7.7 mg/dL (8.5-10.1); Chloride, Blood 104 mmol/L (98-108); Globulin, Blood 2.2 g/dL (2.2-4.0); Glomerular Filtration Rate >60 (60-); Glucose, Blood 145 mg/dL (70-99); Potassium, Blood 3.4 mmol/L (3.5-5.5); Sodium, Blood 140 mmol/L (136-145); Total Protein, Blood 4.6 g/dL (6.4-8.2)
--- NOTE | 2018-04-23 05:50 | NUR ---
SUMMARY PATIENT SLEEPING OFF AND ON T/O THE NIGHT. AT TIMES WHILE SLEEPING PATIENT OXYGEN SAT DROPING TO 88-89% THEN BACK TO 93%. PATIENT CONTINUES ON RA. VERBALIZED FEELING ANXIOUS ABOUT HAVING THE NEPHROSOMY TUBES PLACED TODAY. PATIENTS BECKER DRAINING BLOODY URINE EARLIER, IS NOW DRAINING CLEAR YELLOW URINE. DOCTOR ENCARNACION NOTIFIED OF AM LABS AND GIVEN UPDATE, SEE NEW ORDERS.
--- NOTE | 2018-04-23 07:30 | NUR ---
RECEIVED REPORT FROM PENNY MCKAY, AND ASSUMED CARE OF PT.
--- NOTE | 2018-04-23 11:41 | NUR ---
Pt visit this AM. Pt resting in bed with his eyes closed. Family at bedside including his Evonne and his 2 duaghters. Evonne reports that Dr Simms visited yesterday and Pt instructed MD that he no longer wants to continue chemotherapy. Evonne reports that Dr Simms is on board with Pt's decision and will sign the paper work. Educated family on hospice philosophy with V/U made by family. Engaged in therapeutic conversation and listened as family expressed concerns. Family report that ultimately they are supportive of Pt's decision. Evonne reports Pt is scheduled for nephrostomy procedure today. No other concerns reported by family. Spoke with Pt's nurse Shiela and she reports the Pt would benefit from having his pain medication increased to his home dosage which is 40mg of oxycodone q4 PRN. Called and spoke with Dr Flannery and recieved V/O for oxycodone 40mg Q4 PRN for pain. Placed ordered. Plan is to remain available for symptom management. Placed Hospice referral.
--- NOTE | 2018-04-23 12:00 | NUR ---
PATIENT TAKEN TO ARTISTS' MODEL VIA BED, ON THE PORTABLE MONITOR, BY ARTISTS' MODEL RN.
--- NOTE | 2018-04-23 18:00 | NUR ---
NURSING SUMMARY SLEEPY, WAKES EASILY TO VOICE. HAD BILATERAL NEPHROSTOMY TUBES PLACED WITH GOOD OUTPUT, BLOODY URINE. BECKER REMAINS IN PLACE WITH SCANT BLOODY DRAINAGE. MD'S AWARE AND EXPECTED. C/O BACK AND HEADACHE PAIN, MEDICATING WITH TACOS PRN AND FENTANYL PRN. PT AND FAMILY WOULD LIKE US TO GIVE HIS PAIN MEDICATIONS EVERY 4 HOURS ORDERED, AND ASKED THAT WE WAKE HIM UP TO TAKE THEM, SO THEY DON'T GET BEHIND ON PAIN MANAGEMENT. POOR APPETITE. LUNGS CLEAR/DIMINISHED, 2L O2 NC WHILE SLEEPING, DESATS. GOOD FAMILY SUPPORT. RECEIVED POTASSIUM AND KPHOS REPLACEMENT THIS MORNING.
--- NOTE | 2018-04-23 19:15 | NUR ---
ASSUMED CARE OF PT PT LYING IN BED GRIMACING AND STATING THAT HE IS IN SIGNIFICANT PAIN. PT ALERT BUT FORGETFUL AND CONTINUES TO REPEAT SAME STATEMENTS OVER AND OVER. PT STATES "DO NOT DRINK THE WATER, IT IS CHEAPER TO BUY BOTTLED WATER THAN TO END UP LIKE ME". PT STATES THAT HE WORKED AT [employer] AND THAT "THE WATER GAVE ME CANCER". PT HAD 2 NEPHROSTOMYS PLACED. BECKER AND NEPHROSTOMY TUBES PATENT AND DRAINING SMALL AMOUNT OF BLOODY URINE. PT ON 2L O2 VIA NC WITH SATS IN THE MID 90'S. SEE FULL SHIFT ASSESSMENT.
[2018-04-24 04:18] LABS: Hematocrit 28.7 % (37.0-53.0); Hemoglobin 9.5 g/dL (13.5-17.5); Mean Corpuscular HGB 31.4 pg (26.0-34.0); Mean Corpuscular HGB Conc 33.1 g/dL (31.5-36.5); Mean Corpuscular Volume 95 fL (80-100); Mean Platelet Volume 11.7 fL (9.1-12.4); NRBC ABSOLUTE 0.04 K/mm3 (0.00-0.02); NRBC Auto 0.5 /100 WBC (0.0-0.2); Platelet Count 66 K/mm3 (150-400); RDW Coefficient Variation 12.8 % (11.7-14.2); RDW Standard Deviation 43.8 fL (35.1-46.3); Red Blood Cell Count 3.03 M/mm3 (4.30-5.90); White Blood Cell Count 8.34 K/mm3 (4.00-11.30)
[2018-04-24 04:31] LABS: Alanine Aminotransfer (ALT/SGP 15 U/L (12-78); Albumin, Blood 2.5 g/dL (3.4-5.0); Alk Phos 95 U/L (50-136); Anion Gap 5 mmol/L (6-16); Aspartate Aminotrans (AST/SGOT 13 U/L (12-37); Bilirubin, Total 0.5 mg/dL (0.1-1.0); Blood Urea Nitrogen 24 mg/dL (8-24); Bun/Creatinine Ratio 25.6 (12.0-20.0); CO2, Blood 31 mmol/L (21-32); Calcium, Blood 7.6 mg/dL (8.5-10.1); Chloride, Blood 105 mmol/L (98-108); Creatinine, Blood 0.94 mg/dL (0.60-1.20); Globulin, Blood 2.4 g/dL (2.2-4.0); Glomerular Filtration Rate >60 (60-); Glucose, Blood 134 mg/dL (70-99); Magnesium, Blood 1.7 mg/dL (1.6-2.4); Phosphorus, Blood 2.1 mg/dL (2.5-4.9); Potassium, Blood 3.9 mmol/L (3.5-5.5); Sodium, Blood 141 mmol/L (136-145); Total Protein, Blood 4.9 g/dL (6.4-8.2)
[2018-04-24 04:47] LABS: BAND PERCENT MAN 7 % (0-8); BASOPHILS PERCENT MAN 0 % (0-2); EOSINOPHILS PERCENT MAN 0 % (0-6); LYMPHOCYTES % ATYPICAL MANUAL 1 % (0-0); LYMPHOCYTES ABSOLUTE MAN 0.33 K/mm3 (0.84-5.20); LYMPHOCYTES PERCENT MAN 3 % (21-46); MONOCYTES ABSOLUTE MAN 0.33 K/mm3 (0.16-1.47); MONOCYTES PERCENT MAN 4 % (4-13); MYELOCYTE ABSOLUTE MAN 0.08 K/mm3 (0.00-0.00); MYELOCYTE PERCENT MAN 1 % (0-0); NEUTROPHILS ABSOLUTE MAN 7.58 K/mm3 (1.96-9.15); SEG NEUTROPHILS PERCENT MAN 84 % (41-73); TOTAL CELLS COUNTED 100
--- NOTE | 2018-04-24 06:22 | NUR ---
SHIFT SUMMARY PT DROWSY AND SOMEWHAT CONFUSED OVERNIGHT. PT COMPLAINED OF HEADACHE, BACK, AND FLANK PAIN THROUGHOUT THE NIGHT AND DIDN'T SEEM TO GET ADEQUATE PAIN RELIEF WITH PRESCRIBED MEDICATIONS. PT'S LEFT AND RIGHT NEPHROSTOMY TUBES ARE PATENT AND DRAINING BLOODY URINE. L TUBE DRAINED 400, RIGHT TUBE DRAINED 250. PT AFEBRILE. VITAL SIGNS MOSTLY STABLE WITH SOME PERIODS OF TACHYCARDIA AND SHORT RUNS OF VTACH. WILL REPORT TO DAYSHIFT NURSE.
--- NOTE | 2018-04-24 07:50 | NUR ---
ASSUMED CARE: PT AWAKE AND ALERT. O2 VIA NC. NEPHROSTOMIES NOTED BILATERAL FLANKS WITH RED OUT PUT NOTED. BECKER CATHETER WITH PINK OUTPUT. ASKED WHEN PAIN MEDS WERE DUE BUT STATES FEELING FINE AT THIS TIME. NO FURTHER NEEDS OR CONCERNS AT PRESENT
[2018-04-24 08:32] LABS: Vancomycin, Trough 14.5 ug/mL (5.0-10.0)
--- NOTE | 2018-04-24 11:53 | NUR ---
PALLIATIVE CARE NURSE SPOKE WITH DR SANTOYO ABOUT INCREASING PAIN MEDS. WENT IN TO TELL PT AND FAMILY AND PT IS RESTING QUIETLY. NOTED ALLERGY TO MORPHINE, DISCUSSED WITH RN WHO ORDERED MED, WHO STATES ALLERGY IS NAUSEA AND THIS WAS DISCUSSED WITH PHARMACY. WILL DISCUSS WITH PT ALSO PRIOR TO ADMINISTRATION
--- NOTE | 2018-04-24 12:12 | NUR ---
PT CONFIRMED ONLY NAUSEA OCCURS WITH MORPHINE. WAS AGREEABLE TO TRYING WHILE EATING LUNCH
--- NOTE | 2018-04-24 12:20 | NUR ---
FAMILY WONDERING IF BECKER CAN BE REMOVED. DR SANTOYO HERE TO SEE PT. DISCUSSED WITH HIM AND HE ADVISED FOR FAMILY TO DISCUSS WITH UROLOGY DUE TO PROSTATE CANCER HISTORY. DR ALVAREZ AWARE THAT PT HAS HOSPICE REFERRAL BUT IS STILL FULL CODE. DR REVIEWING CHART NOW
--- NOTE | 2018-04-24 13:30 | NUR ---
BECKER CLAMPED PER DR ALVAREZ'S INSTRUCTION. FAMILY AND PT AGREEABLE TO THIS AND PT INSTRUCTED TO INFORM US IF HE FEELS BLOATED OR IN PAIN IN PELVIC AREA
--- NOTE | 2018-04-24 15:49 | NUR ---
Pt visit this afternoon. Dr Weaver requested this RN to discuss code status with Pt and family. Began conversation by asking Pt and family if they had any questions or concerns regarding Dr Flannery's conversation. Listened as Evonne expressed frustrations and concerns. Evonne reports that she feels that she is influencing the Pt's decision. Pt reports that does influence his decision. Suggested to Pt and family to have a lengthy discussion about each other concerns before makeing a decision. Pt and family are agreeable. Educated Pt and family on code status including CPR, Intubation, and feeding tubes including risk factors. Answered questions about hospice. Pt and family report no other concerns. Will remain available.
--- NOTE | 2018-04-24 16:50 | NUR ---
NOTED THAT PT HAD INCREASING HR OVER PAST HOUR AND A HALF. DISCUSSED WITH PRODUCTION TEAM MEMBER, CALL TO DR ALVAREZ. SEE NEW ORDERS
--- NOTE | 2018-04-24 17:30 | NUR ---
DISCUSSED PT'S RHYTHM WITH SHARED SERVICES AND OUTSOURCING MANAGER, EKG COMPLETED. REVEALED AFIB WITH RVR. CALL TO DR ALVAREZ. SEE NEW ORDERS.
--- NOTE | 2018-04-24 19:15 | NUR ---
ASSUMED CARE OF PT RECEIVED REPORT FROM PENNY VALLADARES. PT ALERT AND ORIENTED SITTING IN BED SURROUNDED BY FAMILY. FAMILY AND PT CONTINUE TO BE CONCERNED ABOUT PAIN CONTROL FOR PT. PT AGAIN REQUESTS TO BE MEDICATED AROUND THE CLOCK AND WOKE UP TO RECEIVE MEDICATION. REASSURED PATIENT THAT HE WILL BE MEDICATED NEEDED TO ACHIEVE PAIN RELIEF. LEFT AND RIGHT NEPHROSTOMY'S PATENT AND DRAINING BLOOD TINGED URINE. BECKER CLAMPED PER DR'S ORDER TO DETERMINE APPROPRIATENESS OF REMOVAL. VSS. SEE FULL SHIFT SUMMARY.
--- NOTE | 2018-04-24 19:50 | NUR ---
SHIFT SUMMARY: PT'S HR IMPROVED AFTER 2 DOSES OF IV METOPROLOL AND 1 PO DOSE. MEDICATE MULTIPLE TIMES THIS SHIFT FOR PAIN. FAMILY AT BEDSIDE MAJORITY OF DAY. BECKER REMAINS CLAMPED WITH NO COMPLAINTS DURING SHIFT. NO FURTHER NEEDS OR CONCERNS AT THIS TIME
[2018-04-25 04:58] LABS: Hematocrit 29.1 % (37.0-53.0); Hemoglobin 9.5 g/dL (13.5-17.5)
[2018-04-25 05:27] LABS: Albumin, Blood 2.4 g/dL (3.4-5.0); Anion Gap 6 mmol/L (6-16); Blood Urea Nitrogen 25 mg/dL (8-24); Bun/Creatinine Ratio 27.1 (12.0-20.0); CO2, Blood 31 mmol/L (21-32); Calcium, Blood 7.6 mg/dL (8.5-10.1); Chloride, Blood 104 mmol/L (98-108); Creatinine, Blood 0.92 mg/dL (0.60-1.20); Glomerular Filtration Rate >60 (60-); Glucose, Blood 129 mg/dL (70-99); Magnesium, Blood 1.6 mg/dL (1.6-2.4); Phosphorus, Blood 2.7 mg/dL (2.5-4.9); Potassium, Blood 3.7 mmol/L (3.5-5.5); Sodium, Blood 141 mmol/L (136-145)
--- NOTE | 2018-04-25 06:39 | NUR ---
SHIFT SUMMARY NO ACUTE CHANGES OVERNIGHT. PT WAS ABLE TO GET SOME GOOD REST AND SEEMED TO HAVE BETTER PAIN RELIEF WITH THE ADDITION OF THE MS CONTIN. NEPHROSTOMY TUBES CONTINUE TO BE PATENT AND DRAIN URINE WITH SLIGHT BLOOD TINGE. 500 ML PER TUBE OUTPUT THIS SHIFT. VSS ALL NIGHT. WILL REPORT TO DAYSHIFT NURSE.
--- NOTE | 2018-04-25 07:07 | NUR ---
ASSUMED CARE: PT RESTING QUIETLY. APPEARS TO BE COMFORTABLE. CLINIMIX RUNNING, VSS AT THIS TIME. NO ACUTE NEEDS OR CONCERNS.
--- NOTE | 2018-04-25 09:06 | NUR ---
REPORT GIVEN TO LIU FRANCIS. PT TRANSFERRED TO ICU 9. FAMILY AWARE. NO ACUTE NEEDS OR CONCERNS.
--- NOTE | 2018-04-25 09:58 | NUR ---
ASSUMED CARE: REPORT RECEIVED FROM JACQUELYN Werner RN. PT TX FROM ICU-06 TO ICU-09 AT APPROX 0900. ASSUMED CARE AT THAT TIME. THE PT's FAMILY IS AGAIN AT BEDSIDE, SUPPORTIVE IN CARE. THE PT STS PAIN IS "BETTER" AFTER MEDS PER EMAR BY PRIOR RN. WILL CONTINUE TO MONITOR & UPDATE NEEDED.
--- NOTE | 2018-04-25 17:36 | NUR ---
SHIFT SUMMARY: PT REMAINS A&O, PLEASANT & COOPERATIVE. HE HAS HAD FAMILY AT BEDSIDE FOR MOST OF THE DAY & THEY SEEM SUPPORTIVE W/ PT's CARE REGIMEN. 1L NC W/ O2 SATS > 92% MONITOR SHOWS AFIB W/ PVCs, HR AVG 80s. PT CONTINUES TO HAVE POOR APPETITE, NUTRITION & PO INTAKE ARE ENCOURAGED. CLINAMIX MAY BE D/C'd IF PT IS CONSISTENTLY EATING > 50% OF MEALS. PT & HIS FAMILY ARE AWARE OF THIS & ARE ENCOURAGING HIM TO EAT MORE FOOD TOLERATED. HE HAS HAD NO C/O NAUSEA THIS SHIFT. BILAT NEPHROSTOMIES CONTINUE DRAINING CRANBERRY COLORED URINE, ALTHOUGH IT HAS LIGHTENED IN COLOR SLIGHTLY TODAY. PT CONSISTENTLY RATES PAIN 7/10 BUT STS "IT IS BETTER" DESPITE THIS. FAMILY STS HE HAS HAD UNCONTROLLED PAIN FOR SOME TIME NOW. WILL CONTINUE TO MONITOR & UPDATE NEEDED.
--- NOTE | 2018-04-25 19:59 | NUR ---
TRANSFER PT TO TRANSFER TO 214. REPORT CALLED TO
[2018-04-26 05:13] LABS: Hematocrit 30.8 % (37.0-53.0)
[2018-04-26 05:52] LABS: Albumin, Blood 2.6 g/dL (3.4-5.0); Anion Gap 6 mmol/L (6-16); Blood Urea Nitrogen 26 mg/dL (8-24); Bun/Creatinine Ratio 27.2 (12.0-20.0); CO2, Blood 32 mmol/L (21-32); Calcium, Blood 7.8 mg/dL (8.5-10.1); Chloride, Blood 103 mmol/L (98-108); Creatinine, Blood 0.96 mg/dL (0.60-1.20); Glomerular Filtration Rate >60 (60-); Glucose, Blood 128 mg/dL (70-99); Magnesium, Blood 1.7 mg/dL (1.6-2.4); Phosphorus, Blood 2.9 mg/dL (2.5-4.9); Potassium, Blood 3.5 mmol/L (3.5-5.5); Sodium, Blood 141 mmol/L (136-145)
--- NOTE | 2018-04-26 07:28 | NUR ---
pain medication appeared to have little effect on pain rateing, gave same number no matter what, call light in reach, had to wake up to give pain medication but alert and orintated when awake and requested to be woken up to keep medication consistant
--- NOTE | 2018-04-26 17:07 | NUR ---
PT AOX4 AND COOPERATIVE OF ALL CARE. PT HAS STAYED IN BED DUE TO WEAKNESS. PT RESTED REALLY WELL AT THE START OF SHIFT. PT HAS SPENT THE REST OF THE DAY VISITING WITH FAMILY. PT TAKES PILLS WHOLE AND CALLS APPROPRIATELY. NO DISTRESS NOTED AND PAIN TREATED PER EMAR.
[2018-04-27 04:46] LABS: Hematocrit 31.2 % (37.0-53.0)
[2018-04-27 05:06] LABS: Albumin, Blood 2.5 g/dL (3.4-5.0); Anion Gap 6 mmol/L (6-16); Blood Urea Nitrogen 29 mg/dL (8-24); Bun/Creatinine Ratio 30.5 (12.0-20.0); CO2, Blood 31 mmol/L (21-32); Calcium, Blood 7.7 mg/dL (8.5-10.1); Chloride, Blood 104 mmol/L (98-108); Creatinine, Blood 0.95 mg/dL (0.60-1.20); Glomerular Filtration Rate >60 (60-); Glucose, Blood 138 mg/dL (70-99); Magnesium, Blood 1.7 mg/dL (1.6-2.4); Phosphorus, Blood 2.7 mg/dL (2.5-4.9); Potassium, Blood 3.5 mmol/L (3.5-5.5); Sodium, Blood 141 mmol/L (136-145)
--- NOTE | 2018-04-27 06:05 | NUR ---
SHIFT SUMMARY PT ADMITTED FOR SEPTIC SHOCK, METASTATIC PROSTATE CA. HE HAS BILATERAL NEPHROSTOMY TUBES HIS PROSTATE IS OBSTRUCTING HIS BLADDER AND URETERS. URINE IS PINK LEMONADE IN COLOR, ADEQUATE PRODUCTION BILATERALLY. HE CONTINUES TO HAVE HIGH LEVELS OF PAIN, MEDICATED PER EMAR FREQUENTLY. TELE WAS A-FIB WITH PVCS AND A BBB IN THE 90S AT TIME OF ASSESSMENT. PT SHOULD BE GETTING UP AND OUT OF BED TODAY. PT IS ON CLINIMIX AT 50ML/HR WHICH WILL BE D/C'D ONCE PATIENT IS TOLERATING MORE PO INTAKE. SUPPLEMENTS ENCOURAGED. PT HAD A BM THIS MORNING. 1L VIA NC, PT DENIES SOB AT REST. WILL CTM UNTIL PASS TO NEXT SHIFT.
--- NOTE | 2018-04-27 09:12 | NUR ---
TELEPHONE ORDER: RCD NEW ORDERS FROM : D/C CLINIMIX, ENCOURAGE PO INTAKE, LASIX 40MG IV X 1 DOSE, KCL 10MEQ PO X 1 DOSE. ORDERS PLACED IN EMAR AND READ BACK.
--- NOTE | 2018-04-27 10:54 | NUR ---
GUYLINE OPERATOR IN ROOM FOR TESTING.
--- NOTE | 2018-04-27 17:28 | NUR ---
SHIFT SUMMARY: PT IS VERY COOPERATIVE WITH CARES. UP TO CHAIR FOR DINNER. 1 ASSIST W/FWW. ENCOURAGE OOB FOR ALL MEALS. NEPHRO LINES ARE PATENT/DRAINING WELL. PAIN HAS BEEN MANAGED WITH OXYCODONE AND MS CONT. TOLERATING PO INTAKE. ENCOURAGE SM AMOUNTS FREQUENTLY. HE TOLERATED SNACKS BETWEEN MEALS. PLAN IS FOR HIM TO D/C HOME WITH HOSPICE TOMORROW. WILL CTM UNTIL REPORT GIVEN TO NEXT RN.
[2018-04-28 05:22] LABS: Hematocrit 30.1 % (37.0-53.0); Hemoglobin 9.6 g/dL (13.5-17.5)
[2018-04-28 06:24] LABS: Anion Gap 4 mmol/L (6-16); Blood Urea Nitrogen 29 mg/dL (8-24); Bun/Creatinine Ratio 30.2 (12.0-20.0); CO2, Blood 34 mmol/L (21-32); Calcium, Blood 7.5 mg/dL (8.5-10.1); Chloride, Blood 102 mmol/L (98-108); Creatinine, Blood 0.96 mg/dL (0.60-1.20); Glomerular Filtration Rate >60 (60-); Glucose, Blood 118 mg/dL (70-99); Magnesium, Blood 1.7 mg/dL (1.6-2.4); Phosphorus, Blood 2.5 mg/dL (2.5-4.9); Potassium, Blood 3.4 mmol/L (3.5-5.5); Sodium, Blood 140 mmol/L (136-145)
[2018-04-28 06:25] LABS: Albumin, Blood 2.4 g/dL (3.4-5.0)
--- NOTE | 2018-04-28 07:38 | NUR ---
DR ENCARNACION ORDERS: KCL P0 20 MG X1, THEN GIVE LASIX IV 40 MG X1, THEN GIVE KCL PO 20 MG X1; ENC PT TO URINATE, PLACE BECKER CATHETER IF NECESSARY TO KEEP BLADDER SCAN < 300.
--- NOTE | 2018-04-28 18:21 | NUR ---
SHIFT SUMMARY PT ALERT, AWAKE, INTERACTIVE, FORGETFUL, PLEASANT & COOPERATIVE. RA. TELE AFIB @ 93. IV ABX INFUSING. DARREN NEPROSTOMY TUBES PATENT & DRAINING LORA ON RIGHT AND CRANBERRY ON LEFT, OUTPUT ON L = 950 MLS AND S=[id number] MLS. UP TO CHAIR T/O SHIFT. DERIAN PO, INCREASED INTAKE OF MEALS. PAIN MANAGED PER EMAR. PICC LINE RUE. WCTM & TX PER EMAR UNTIL REPORT GIVEN TO ONCOMING KIA RN.
--- NOTE | 2018-04-29 03:59 | NUR ---
SHIFT SUMMARY PT A&O X4 T/O SHIFT. BILAT NEPHROSTOMYS DRAINING CRANBERRY URINE; URINE COLOR LIGHTENED OVER SHIFT. BLADDER SCAN SHOWED OVER 500ML, ORDER TO STRAIGHT CATH X1 PER DR. CABRERA VIA PHONE AT 0130. 250ML URINE, DARK YELLOW/LORA, OUT; POST CATH BLADDER SCAN SHOWED 0ML. PT REPOSITIONED WITH ASSIST; BLE ELEVATED. SEVERAL SMALL INCONT. STOOLS DURING SHIFT. 1L O2 VIA NC; PT DENIES SOB, NAUSEA AND CP. CHRONIC PAIN IN HEAD MANAGED PER EMAR. CALL LIGHT IN REACH; PT DEMONSTRATES USE. WCTM UNTIL REPORT TO DAY SHIFT RN.
[2018-04-29 04:36] LABS: Hematocrit 30.2 % (37.0-53.0); Hemoglobin 9.6 g/dL (13.5-17.5)
[2018-04-29 06:07] LABS: Magnesium, Blood 1.6 mg/dL (1.6-2.4)
[2018-04-29 06:25] LABS: Albumin, Blood 2.4 g/dL (3.4-5.0); Anion Gap 7 mmol/L (6-16); Blood Urea Nitrogen 24 mg/dL (8-24); Bun/Creatinine Ratio 23.8 (12.0-20.0); CO2, Blood 32 mmol/L (21-32); Calcium, Blood 7.6 mg/dL (8.5-10.1); Chloride, Blood 102 mmol/L (98-108); Creatinine, Blood 1.01 mg/dL (0.60-1.20); Glomerular Filtration Rate >60 (60-); Glucose, Blood 95 mg/dL (70-99); Potassium, Blood 3.4 mmol/L (3.5-5.5); Sodium, Blood 141 mmol/L (136-145)
[2018-04-29 06:51] LABS: Phosphorus, Blood 2.1 mg/dL (2.5-4.9)
--- NOTE | 2018-04-29 11:45 | NUR ---
Reynold was alert, friendly and pain free. His family was present showing support, love and attention. I engaged them in conversation, answered some basic questions about hospice, and provided ecnouragement and reassurance. Gwen would like more information about dressing changes, nephrostomy tube management, and how the discharge and transition to services with [facility] process will work. I relayed those points of intertest to Palliative Care PENNY Mark for follow up.
--- NOTE | 2018-04-29 12:35 | NUR ---
PAL CARE VISIT MADE AFTER VEHICLE CONTROLS ENGINEER HAD VISITED REGARDING POLST. SPOKE WITH PT AND RN PRIOR TO MY VISIT. PT RESTING IN BED UPON MY ARRIVAL WITH AND COLTEN AT BEDSIDE. HE DENIES PAIN, EVEN WITH MOVEMENT AND PT SESSION. QUICK TO POINT OUT THAT ADOLPH IS NOT HURTING BECAUSE HE HAD HIS PAIN MEDICATION PRIOR TO MOBILITY AND PT. PT AND FAMILY STATE THAT HIS CURRENT MEDICATIONS ARE EFFECTIVE FOR COMFORT. HE DENIES NAUSEA, ANXIETY OR AGITATION AND I AM NOT NOTING ANY NONVERBAL INDICATORS OF DISTRESS OR PAIN. PT AND FAMILY ARE ENGAGED IN PROBLEM SOLVING WITH ME REGARDING DISCHARGE HOME WITH HOSPICE. THEY DO NOT NEED ANY EQUIPMENT AT THIS TIME. THEY HAVE DECIDED ON TRANSPORT HOME IN PRIVATE TRUCK AND HAVE HELP AT HOME WITH GETTING PT INTO THE HOME. THEY ARE CURRENTLY ON [facility] AND HAVE SPOKEN TO DR VILLEDA RE: HOSPICE ORDERS. HIS PCP IS [facility] IN [place]. THEY ARE REQUESTING VINITA FRANCIS FOR THEIR SCHOOL TREASURER. RESULTS OF MY VISIT WERE COMMUNICATED TO EL[place] AT [facility] BY PHONE, PT'S RN AND JOSE FROM [facility]. DISCUSSED REVIEWING NEPHROSTOMY TUBE CARE AND DRESSING CHANGE WITH RN WHO WILL REVIEW WITH BEFORE D/C HOME.
--- NOTE | 2018-04-29 13:00 | NUR ---
TELEPHONE CALL TO DR ARMIN ALDRIDGE OF NEPHROSTOMY OUPUT, WHEN ARE DRESSING CHANGES, BLADDER SCAN & URINE OUTPUT, WHO WILL MANAGE NEPHROSTOMY TUBES AND WHEN IS FU APPT NECESSARY. DOCTOR NOT AVAILABLE, LEFT MESSAGE WITH SAJAN.
--- NOTE | 2018-04-29 13:00 | NUR ---
DR TORIBIO AT BEDSIDE DISCUSSING POLST, AND PLAN INC DC HOME WITH HOSPICE.
--- NOTE | 2018-04-29 13:00 | NUR ---
TELEPHONE CALL WITH MINH LEUNG ON PT. REQUESTED MINH FRANCIS CONTACT JOSE - DC [employer] WITH [facility] TO WORK ON PLAN FOR DC HOME ON HOSPICE.
[2018-04-29] MEDS ORDERED: ACET325 PO (14:43)
[2018-04-29] MEDS ORDERED: LEVFLO500 PO (14:45)
--- NOTE | 2018-04-29 15:34 | NUR ---
DISCHARGE SUMMARY PT ALERT, PLEASANT, COOPERATIVE AND READY FOR DISCHARGE. AND G/DAUGHTERS AT BEDSIDE FOR DISCHARGE INSTRUCTIONS. DC INS PROVIDED. FAMILY REP UNDERSTANDING THOSE INSTRUCTIONS INCLUDING FU APPT WITH PCP, FU APPT WITH UROLOGIST (PROVIDED LIST OF QUESTIONS R/T MANAGE CARE OF NEPHROSTOMY TUBES), DRESSING CHANGE AND EMPTYING NEPHR TUBE BAGS PROVIDED WITH SUPPLIES, POLST COMPLETED AND FAXED TO [facility], COPY ON CHART AND ORIGINAL PROVIDED TO . PICC LINE DC'D.
== END 2018-04-29 15:39 | disposition hospice, home (50) | DRG 698 ==
LOC: ER 11:32 → ICUW 17:29 → ICUE 17:29 → ICUW 04-25 09:34 → SURS 04-25 20:27
PROVIDERS: Emergency Medicine; Hospitalist; Internal Medicine Critical Care Medicine; Internal Medicine Nephrology; ADMIT Internal Medicine
PROC: 3E033XZ Introduction of Vasopressor into Peripheral Vein, Percutaneous Approach (ICD-10-PCS; principal; 2018-04-20)
PROC: 0T9430Z Drainage of Left Kidney Pelvis with Drainage Device, Percutaneous Approach (ICD-10-PCS; 2018-04-23)
PROC: 0T9330Z Drainage of Right Kidney Pelvis with Drainage Device, Percutaneous Approach (ICD-10-PCS; 2018-04-23)
DX: T83.511A Infection and inflammatory reaction due to indwelling urethral catheter, initial encounter (principal); R65.21 Severe sepsis with septic shock; A41.51 Sepsis due to Escherichia coli [E. coli]; N17.9 Acute kidney failure, unspecified; N13.30 Unspecified hydronephrosis; E87.2 Acidosis; C18.9 Malignant neoplasm of colon, unspecified; C79.51 Secondary malignant neoplasm of bone; N12 Tubulo-interstitial nephritis, not specified as acute or chronic; E27.40 Unspecified adrenocortical insufficiency; N13.4 Hydroureter; I13.0 Hypertensive heart and chronic kidney disease with heart failure and stage 1 through stage 4 chronic kidney disease, or unspecified chronic kidney disease; I25.10 Atherosclerotic heart disease of native coronary artery without angina pectoris; J44.9 Chronic obstructive pulmonary disease, unspecified; E78.00 Pure hypercholesterolemia, unspecified; Z90.79 Acquired absence of other genital organ(s); Z95.5 Presence of coronary angioplasty implant and graft; M81.0 Age-related osteoporosis without current pathological fracture; Z90.49 Acquired absence of other specified parts of digestive tract; Z79.82 Long term (current) use of aspirin; Z86.711 Personal history of pulmonary embolism; Z92.21 Personal history of antineoplastic chemotherapy; Z96.0 Presence of urogenital implants; Y84.6 Urinary catheterization as the cause of abnormal reaction of the patient, or of later complication, without mention of misadventure at the time of the procedure; C61 Malignant neoplasm of prostate; E78.5 Hyperlipidemia, unspecified; I25.5 Ischemic cardiomyopathy; E86.9 Volume depletion, unspecified; I95.9 Hypotension, unspecified; D63.1 Anemia in chronic kidney disease; E87.6 Hypokalemia; E83.42 Hypomagnesemia; E83.39 Other disorders of phosphorus metabolism; I50.9 Heart failure, unspecified; I49.1 Atrial premature depolarization; B96.20 Unspecified Escherichia coli [E. coli] as the cause of diseases classified elsewhere; B96.1 Klebsiella pneumoniae [K. pneumoniae] as the cause of diseases classified elsewhere; B95.2 Enterococcus as the cause of diseases classified elsewhere; E86.1 Hypovolemia; N18.9 Chronic kidney disease, unspecified
CPT/HCPCS: 36415; 36569; 36600; 50432; 51702; 71045; 76770; 80048; 80053; 80069; 80202; 81001; 82330; 82550; 82803; 83605; 83735; 84100; 84132; 84295; 84550; 85014; 85018; 85025; 87040; 87077; 87086; 87186; 87493; 93005; 93010; 93306; 96360; 96361; 97162; 97166; 97530; 99152; 99153; 99285-25; C1751; C1769; J0610; J0696; J0881; J1644; J1720; J1940; J1956; J2250; J2405; J2543; J3010; J3370; J3475; J3480; J7030; J7040; J7042; J7050; J7060; J7070; J7131; P9041; P9046; Q9967